=== PATIENT | male | born 1975 | race African-American/Black ===

== ENCOUNTER → 2017-04-08 | Outpatient (CLI) | payer OTHER | LOC: MHCPAIN 10:21 | DX: G89.29 Other chronic pain (principal); M47.817 Spondylosis without myelopathy or radiculopathy, lumbosacral region | CPT/HCPCS: G0463 ==

== ENCOUNTER → 2017-04-16 | Outpatient (CLI) | payer OTHER | LOC: MHCPAIN 11:43 | DX: M47.27 Other spondylosis with radiculopathy, lumbosacral region (principal); M46.96 Unspecified inflammatory spondylopathy, lumbar region ==

== ENCOUNTER → 2017-04-27 | Outpatient (CLI) | payer OTHER | LOC: MHCPAIN 12:44 | DX: G89.29 Other chronic pain (principal); M47.27 Other spondylosis with radiculopathy, lumbosacral region | CPT/HCPCS: G0463 ==